=== PATIENT | female | born 1985 | race African-American/Black ===

== ENCOUNTER 2020-06-05 15:38 | Emergency (ER) | payer OTHER ==
[~2020-06-05] VITALS: Ht 165.1 cm; Wt 86.0 kg
[2020-06-05 17:15] LABS: BASOPHILS % 0.7 % (0.0-2.0); EOSINOPHILS % 0.6 % (0.0-5.0); HEMATOCRIT. 39.3 % (36.0-48.0); HEMOGLOBIN. 12.9 g/dL (12.0-16.0); LYMPHOCYTES % 17.1 % (20.0-50.0); MEAN CORPUSCULAR HEMOGLOBIN 26.2 pg (28.0-32.0); MEAN CORPUSCULAR VOLUME 79.9 fL (81.0-99.0); MEAN PLATELET VOLUME 8.7 fl (7.4-10.4); NEUTROPHILS % 75.6 % (40.0-76.0); PLATELET 320 x1000/uL (130-400); RED BLOOD CELL COUNT 4.92 mill/uL (4.2-5.4); RED CELL DISTRIBUTION WIDTH 15.2 % (11.6-14.6)
[2020-06-05 17:17] LABS: CHLORIDE 107 mEq/L (98-107)
[2020-06-05 17:35] LABS: HCG SCREEN NEGATIVE
[2020-06-05 17:44] LABS: CLARITY URINE TURBID (CLEAR); COLOR URINE RED (YELLOW); KETONES URINE NEGATIVE (NEGATIVE); LEUKOCYTE ESTERASE URINE 2+ (NEGATIVE); NITRITE URINE POSITIVE (NEGATIVE); OCCULT BLOOD URINE 2+ (NEGATIVE); PROTEIN URINE 2+ (NEGATIVE); SPECIFIC GRAVITY URINE 1.032 (1.005-1.030); UROBILINOGEN URINE 0.2 E.U./dL (0.2-1.0)
[2020-06-05 19:56] VITALS: BP 130/89
== END 2020-06-05 20:46 | disposition home or self-care (01) ==
LOC: ER 15:38
DX: N93.8 Other specified abnormal uterine and vaginal bleeding (principal); N30.00 Acute cystitis without hematuria; R03.0 Elevated blood-pressure reading, without diagnosis of hypertension
CPT/HCPCS: 36415; 76830; 76856; 80053; 81003; 81025; 84703; 85025; 93005; 99285

== ENCOUNTER 2020-07-30 11:41 | Emergency (ER) | payer MEDICAID, OTHER ==
[~2020-07-30] VITALS: Ht 165.1 cm; Wt 84.0 kg
[2020-07-30] MEDS ORDERED: ACETAMINOPHEN 325MG TABLET PO ONE (12:00)
[2020-07-30] MEDS ORDERED: METOCLOPRAMIDE HCL 10MG/2ML VIAL IV ONE (12:30)
[2020-07-30] MEDS ORDERED: SODIUM CHLORIDE 0.9% 1,000 ML IV ONE (12:30)
[2020-07-30] MEDS ORDERED: KETOROLAC 15MG/ML VIAL IV ONE (12:30)
[2020-07-30 14:30] VITALS: BP 147/79
== END 2020-07-30 14:34 | disposition home or self-care (01) ==
LOC: ER 11:41
DX: G43.909 Migraine, unspecified, not intractable, without status migrainosus (principal); J06.9 Acute upper respiratory infection, unspecified; I49.9 Cardiac arrhythmia, unspecified
CPT/HCPCS: 93005; 96361; 96374; 96375; 99284; J1885; J2765; J7030